=== PATIENT | female | born 2000 | race Two or more races ===

== ENCOUNTER 2023-02-24 22:44 | Emergency (ER) | payer OTHER ==
[~2023-02-24] VITALS: Ht 160 cm; Wt 72.6 kg
== END 2023-02-25 01:35 | disposition home or self-care (01) ==
LOC: ER 22:44
DX: O26.851 Spotting complicating pregnancy, first trimester (principal); Z3A.01 Less than 8 weeks gestation of pregnancy

== ENCOUNTER 2023-03-06 13:57 | Emergency (ER) | payer OTHER ==
[~2023-03-06] VITALS: Ht 157.5 cm; Wt 70.8 kg
== END 2023-03-06 17:58 | disposition home or self-care (01) ==
LOC: ER 13:57
DX: O20.8 Other hemorrhage in early pregnancy (principal); Z3A.08 8 weeks gestation of pregnancy

== ENCOUNTER 2023-03-13 19:21 | Emergency (ER) | payer OTHER ==
[~2023-03-13] VITALS: Ht 167.6 cm; Wt 61.2 kg
[2023-03-13] MEDS ORDERED: PRENA1 CHEW TA1.4 MG PO (19:34)
[2023-03-13] MEDS ORDERED: DUI500 PO (22:27)
== END 2023-03-13 22:31 | disposition home or self-care (01) ==
LOC: ER 19:21
DX: O20.8 Other hemorrhage in early pregnancy (principal); Z3A.09 9 weeks gestation of pregnancy; R10.2 Pelvic and perineal pain; N39.0 Urinary tract infection, site not specified

== ENCOUNTER 2023-03-27 08:13 | Outpatient (CLI) | payer OTHER ==
[~2023-03-27 08:13] MED LIST: DUI500 PO; PRENA1 CHEW TA1.4 MG PO
== END 2023-03-27 09:25 | disposition home or self-care (01) ==
LOC: PRENATAL 08:13
PROVIDERS: ATTEND Obstetrics & Gynecology Maternal & Fetal Medicine
DX: O36.80X0 Pregnancy with inconclusive fetal viability, not applicable or unspecified (principal); Z36.9 Encounter for antenatal screening, unspecified; Z3A.11 11 weeks gestation of pregnancy

== ENCOUNTER 2023-05-13 00:19 | Emergency (ER) | payer OTHER ==
[~2023-05-13] VITALS: Ht 157.5 cm; Wt 68.0 kg
[2023-05-13] MEDS ORDERED: CEPHALEXIN500 MG PO (05:16)
== END 2023-05-13 05:22 ==
LOC: ER 00:19
PROVIDERS: General Practice
DX: O46.8X2 Other antepartum hemorrhage, second trimester (principal); Z3A.18 18 weeks gestation of pregnancy; R10.9 Unspecified abdominal pain; N39.0 Urinary tract infection, site not specified; O23.31 Infections of other parts of urinary tract in pregnancy, first trimester

== ENCOUNTER 2023-05-27 08:16 | Outpatient (CLI) | payer OTHER ==
[~2023-05-27 08:16] MED LIST changes: +CEPHALEXIN500 MG PO
== END 2023-05-27 09:36 | disposition home or self-care (01) ==
LOC: PRENATAL 08:16
PROVIDERS: ATTEND Obstetrics & Gynecology Maternal & Fetal Medicine
DX: O35.3XX0 Maternal care for (suspected) damage to fetus from viral disease in mother, not applicable or unspecified (principal); O44.00 Complete placenta previa NOS or without hemorrhage, unspecified trimester; O34.219 Maternal care for unspecified type scar from previous cesarean delivery; O99.891 Other specified diseases and conditions complicating pregnancy; Z3A.19 19 weeks gestation of pregnancy

== ENCOUNTER 2023-08-26 08:36 | Outpatient (CLI) | payer OTHER | END 2023-08-26 08:37 | disposition home or self-care (01) | LOC: PRENATAL 08:36 | PROVIDERS: ATTEND Obstetrics & Gynecology Maternal & Fetal Medicine | DX: O26.849 Uterine size-date discrepancy, unspecified trimester (principal); O36.8199 Decreased fetal movements, unspecified trimester, other fetus; O34.219 Maternal care for unspecified type scar from previous cesarean delivery; O99.891 Other specified diseases and conditions complicating pregnancy; Z3A.32 32 weeks gestation of pregnancy ==